=== PATIENT | male | born 1980 | race African-American/Black ===

== ENCOUNTER 2019-03-16 06:15 | Inpatient (IN) ==
[2019-03-16] MEDS ORDERED: ZALEPLON 5 MG CAPSULE PO PRN (06:16)
[2019-03-16] MEDS ORDERED: DOCUSATE SODIUM 100 MG CAPSULE PO PRN (06:16)
[2019-03-16] MEDS ORDERED: GLUCAGON 1 MG VIAL IM PRN (06:16)
[2019-03-16] MEDS ORDERED: ONDANSETRON 4 MG/2 ML VIAL IV PRN (06:16)
[2019-03-16] MEDS ORDERED: DEXTROSE 10% 25 GM/250 ML BAG IV PRN (06:16)
[2019-03-16] MEDS ORDERED: hydrALAZINE 20 MG/1 ML VIAL IV PRN (06:20)
[2019-03-16] MEDS ORDERED: ALBUTEROL 2.5 MG/3 ML NEB RESP TX PRN (06:20)
[2019-03-16] MEDS: ALBUTEROL/IPRATROPIUM 3 ML NEB RESP TX SCH ×3 (07:07→20:48)
[2019-03-16 08:27] LABS: Basophils % 0.2 % (0.0-0.8); Eosinophils % 0.2 % (0.00-10.9); Hematocrit 40.8 VOL% (42.0-52.0); Hemoglobin 13.8 GM/DL (14.0-18.0); Immature Granulocytes % 0.2 %; Immature Granulocytes Absolute 0.01 #; Lymphocytes # 1.2 10*3/uL (1.4-4.0); Mean Corpuscular HGB Conc 33.8 GM/DL (32-36); Mean Corpuscular Volume 85.7 FL (87-102); Mean Platelet Volume 12.8 FL (9.6-12.0); Monocytes % 6.6 % (1.7-12.7); Neutrophils % 69.8 % (38.7-73.9); Platelet Count 142 T/CUMM (130-400); Red Blood Count 4.76 MC/CUMM (3.8-5.5); Red Cell Distribution Width 11.2 % (9.3-17.3); White Blood Count 5.2 T/CUMM (4-12)
[2019-03-16 08:50] LABS: Albumin 2.8 G/DL (3.4-5.0); Bilirubin,Total 0.4 MG/DL (0.2-1.0); Calcium 8.3 MG/DL (8.5-10.1); Osmolality,Calculated 284.2 MOS/KG (273-304); Total Protein 7.7 G/DL (6.4-8.3)
[2019-03-16] MEDS: SODIUM CHLORIDE 0.9% 1,000 ML IV SCH ×3 (09:15→22:30)
[2019-03-16] MEDS: INSULIN REGULAR 100 UNIT/ML SUBCUT SCH ×4 (09:26→21:01)
[2019-03-16] MEDS: AZITHROMYCIN INJ 500 MG in SODIUM CHLORIDE 0.9% 250 ML IV SCH (09:27)
[2019-03-16] MEDS: cefTRIAXone 1,000 MG in SYRINGE 1 EACH IV SCH (09:27)
[2019-03-16 11:16] LABS: Amorphous Crystals,Urine Occasional /HPF (Few); Apearance,Urine CLOUDY (Clear); Bilirubin,Urine Negative (Negative); Blood, Urine Small mg/dL (Negative); Glucose,Urine (UA) >=500 mg/dL (Negative); Ketones,Urine 5 mg/dL (Negative); Mucus,Urine Occasional /LPF (Occasional); Nitrite,Urine Negative (Negative); Protein,Urine 30 MG/DL; RBC,Urine 1 /HPF (0-4); Red Blood Cell Casts,Urine 1 /LPF (<1); Squamous Epithelial Cell,Urine Occasional /HPF (0-10); Urine Color Yellow (Yellow); Urine Specific Gravity 1.013 (1.001-1.035); Urine Urobilinogen < 2.0 EU/DL (0.2-1.0); WBC,Urine 6 /HPF (0-6)
[2019-03-16] MEDS: ACETAMINOPHEN 325 MG TABLET PO PRN ×2 (12:49→21:02)
[2019-03-16] MEDS: INSULIN LISPRO 100 UNIT/ML SUBCUT SCH ×2 (12:50→17:04)
[2019-03-16] MEDS: INSULIN GLARGINE 100 UNIT/ML SUBCUT SCH (12:50)
[2019-03-17] MEDS: SODIUM CHLORIDE 0.9% 1,000 ML IV SCH ×3 (00:30→17:10)
[2019-03-17] MEDS: ALBUTEROL/IPRATROPIUM 3 ML NEB RESP TX SCH ×4 (02:40→19:12)
[2019-03-17 06:40] LABS: Basophils % 0.2 % (0.0-0.8); Eosinophils % 0.4 % (0.00-10.9); Hematocrit 37.5 VOL% (42.0-52.0); Hemoglobin 12.3 GM/DL (14.0-18.0); Immature Granulocytes % 0.4 %; Immature Granulocytes Absolute 0.02 #; Lymphocytes % 41.6 % (21.2-54.2); Mean Corpuscular HGB Conc 32.8 GM/DL (32-36); Mean Corpuscular Volume 88.2 FL (87-102); Mean Platelet Volume 12.4 FL (9.6-12.0); Neutrophils % 51.4 % (38.7-73.9); Platelet Count 146 T/CUMM (130-400); Red Blood Count 4.25 MC/CUMM (3.8-5.5); Red Cell Distribution Width 11.4 % (9.3-17.3); White Blood Count 4.9 T/CUMM (4-12)
[2019-03-17 06:43] LABS: Calcium 8.3 MG/DL (8.5-10.1); Osmolality,Calculated 286.2 MOS/KG (273-304)
[2019-03-17 07:04] LABS: Lymphocytes 46 % (20-55); Platelet Estimate Adequate; Segmented Neutrophils 44 % (50-85); Total Cells Counted 100
[2019-03-17 07:05] LABS: Microcytosis Slight
[2019-03-17] MEDS: ACETAMINOPHEN 325 MG TABLET PO PRN ×2 (07:58→20:51)
[2019-03-17] MEDS: INSULIN LISPRO 100 UNIT/ML SUBCUT SCH ×3 (08:35→17:02)
[2019-03-17] MEDS: INSULIN GLARGINE 100 UNIT/ML SUBCUT SCH (08:36)
[2019-03-17] MEDS: INSULIN REGULAR 100 UNIT/ML SUBCUT SCH ×4 (08:37→22:13)
[2019-03-17] MEDS: cefTRIAXone 1,000 MG in SYRINGE 1 EACH IV SCH (09:26)
[2019-03-17] MEDS: AZITHROMYCIN INJ 500 MG in SODIUM CHLORIDE 0.9% 250 ML IV SCH (09:29)
[2019-03-17] MEDS: GABAPENTIN 100 MG CAPSULE PO SCH (20:52)
[2019-03-18] MEDS: SODIUM CHLORIDE 0.9% 1,000 ML IV SCH ×2 (00:18→08:23)
[2019-03-18] MEDS: ALBUTEROL/IPRATROPIUM 3 ML NEB RESP TX SCH ×4 (00:23→19:53)
[2019-03-18 05:44] LABS: Basophils % 0.5 % (0.0-0.8); Eosinophils # 0.1 10*3/uL (0.0-0.87); Eosinophils % 2.4 % (0.00-10.9); Hematocrit 34.9 VOL% (42.0-52.0); Hemoglobin 11.4 GM/DL (14.0-18.0); Immature Granulocytes % 0.2 %; Immature Granulocytes Absolute 0.01 #; Lymphocytes # 2.1 10*3/uL (1.4-4.0); Lymphocytes % 48.5 % (21.2-54.2); Mean Corpuscular HGB Conc 32.7 GM/DL (32-36); Mean Corpuscular Volume 89.3 FL (87-102); Mean Platelet Volume 12.4 FL (9.6-12.0); Monocytes % 6.1 % (1.7-12.7); Neutrophils % 42.3 % (38.7-73.9); Platelet Count 156 T/CUMM (130-400); Red Blood Count 3.91 MC/CUMM (3.8-5.5); Red Cell Distribution Width 11.3 % (9.3-17.3); White Blood Count 4.3 T/CUMM (4-12)
[2019-03-18 05:58] LABS: Calcium 8.2 MG/DL (8.5-10.1); Osmolality,Calculated 283.8 MOS/KG (273-304)
[2019-03-18 06:06] LABS: Atypical Lymphocytes Few; Hypochromasia 1+; Lymphocytes 54 % (20-55); Microcytosis Slight; Myelocytes 1 %; Platelet Estimate Adequate; Segmented Neutrophils 41 % (50-85); Total Cells Counted 100
[2019-03-18] MEDS: INSULIN REGULAR 100 UNIT/ML SUBCUT SCH ×4 (07:59→19:20)
[2019-03-18] MEDS: INSULIN GLARGINE 100 UNIT/ML SUBCUT SCH (08:24)
[2019-03-18] MEDS: INSULIN LISPRO 100 UNIT/ML SUBCUT SCH ×3 (08:24→16:04)
[2019-03-18] MEDS: GABAPENTIN 100 MG CAPSULE PO SCH ×3 (08:24→20:05)
[2019-03-18] MEDS: AZITHROMYCIN 250 MG TABLET PO SCH (08:24)
[2019-03-18] MEDS: cefTRIAXone 1,000 MG in SYRINGE 1 EACH IV SCH (08:26)
[2019-03-18] MEDS: ACETAMINOPHEN 325 MG TABLET PO PRN (12:07)
[2019-03-18] MEDS: SODIUM BICARB INJ 50 MEQ in SODIUM CHLORIDE 0.45% 1,000 ML IV SCH ×2 (13:02→22:05)
[2019-03-19] MEDS: ALBUTEROL/IPRATROPIUM 3 ML NEB RESP TX SCH ×2 (00:50→07:20)
[2019-03-19 05:10] LABS: Basophils % 0.2 % (0.0-0.8); Eosinophils # 0.2 10*3/uL (0.0-0.87); Eosinophils % 3.8 % (0.00-10.9); Hematocrit 34.9 VOL% (42.0-52.0); Hemoglobin 11.1 GM/DL (14.0-18.0); Immature Granulocytes % 0.5 %; Immature Granulocytes Absolute 0.02 #; Lymphocytes # 1.7 10*3/uL (1.4-4.0); Lymphocytes % 41.2 % (21.2-54.2); Mean Corpuscular HGB Conc 31.8 GM/DL (32-36); Mean Corpuscular Volume 90.2 FL (87-102); Monocytes % 6.7 % (1.7-12.7); Neutrophils % 47.6 % (38.7-73.9); Platelet Count 183 T/CUMM (130-400); Red Blood Count 3.87 MC/CUMM (3.8-5.5); Red Cell Distribution Width 11.3 % (9.3-17.3); White Blood Count 4.2 T/CUMM (4-12)
[2019-03-19 05:44] LABS: Calcium 8.5 MG/DL (8.5-10.1); Osmolality,Calculated 282.5 MOS/KG (273-304)
[2019-03-19 05:47] LABS: Microcytosis Slight; Platelet Estimate Adequate
[2019-03-19] MEDS: INSULIN REGULAR 100 UNIT/ML SUBCUT SCH ×2 (07:44→12:44)
[2019-03-19] MEDS: cefTRIAXone 1,000 MG in SYRINGE 1 EACH IV SCH (08:10)
[2019-03-19] MEDS: INSULIN GLARGINE 100 UNIT/ML SUBCUT SCH (08:11)
[2019-03-19] MEDS: INSULIN LISPRO 100 UNIT/ML SUBCUT SCH ×2 (08:11→12:47)
[2019-03-19] MEDS: SODIUM BICARB INJ 50 MEQ in SODIUM CHLORIDE 0.45% 1,000 ML IV SCH (08:11)
[2019-03-19] MEDS: ACETAMINOPHEN 325 MG TABLET PO PRN (08:12)
[2019-03-19] MEDS: AZITHROMYCIN 250 MG TABLET PO SCH (08:12)
[2019-03-19] MEDS: GABAPENTIN 100 MG CAPSULE PO SCH (08:13)
[2019-03-19 12:45] VITALS: BP 132/80
== END 2019-03-19 13:45 | disposition home or self-care (01) | DRG 683 ==
LOC: SUATTDRO → N.5EOUT 06:15 → N.5E 06:15
PROVIDERS: ADMIT Internal Medicine; ATTEND Internal Medicine

== ENCOUNTER 2021-06-19 23:37 | Inpatient (IN) ==
[2021-06-20] MEDS ORDERED: LABETALOL 20 MG/4 ML SYRINGE IV STA (00:07)
[2021-06-20 00:14] LABS: Basophils % 0.3 % (0.0-0.8); Eosinophils # 0.1 10*3/uL (0.0-0.87); Eosinophils % 1.2 % (0.00-10.9); Hematocrit 32.1 VOL% (42.0-52.0); Hemoglobin 10.3 GM/DL (14.0-18.0); Immature Granulocytes % 0.6 %; Immature Granulocytes Absolute 0.04 #; Lymphocytes # 1.4 10*3/uL (1.4-4.0); Lymphocytes % 20.4 % (21.2-54.2); Mean Corpuscular HGB Conc 32.1 GM/DL (32-36); Mean Corpuscular Volume 92.8 FL (87-102); Mean Platelet Volume 10.4 FL (9.6-12.0); Monocytes # 0.4 10*3/uL (0.11-0.8); Monocytes % 5.8 % (1.7-12.7); Neutrophils % 71.7 % (38.7-73.9); Platelet Count 260 T/CUMM (130-400); Red Blood Count 3.46 MC/CUMM (3.8-5.5); Red Cell Distribution Width 12.5 % (9.3-17.3); White Blood Count 6.8 T/CUMM (4-12)
[2021-06-20 00:19] LABS: PT Patient Result 10.6 SECS (10.5-12.0); Partial Thromboplastin Time 28.7 SECS (23.8-32.1)
[2021-06-20 00:24] LABS: Albumin 3.6 G/DL (3.4-5.0); Bilirubin,Total 0.4 MG/DL (0.20-1.00); Calcium 9.1 MG/DL (8.5-10.1); Osmolality,Calculated 294.7 MOS/KG (273-304); Potassium 5.2 MMOL/L (3.5-5.1); Total Protein 7.4 G/DL (6.4-8.2)
[2021-06-20] MEDS ORDERED: NITROGLYCERIN SL 0.4 MG TABLET SL PRN (01:39)
[2021-06-20] MEDS ORDERED: HEPARIN 5,000 UNIT/1 ML VIAL IV ONE (01:39)
[2021-06-20] MEDS ORDERED: ASPIRIN CHEW 81 MG TABLET PO ONE (01:39)
[2021-06-20] MEDS ORDERED: MAGNESIUM SULF RIDER 2 GM/50 ML PREMIX IV PRN (01:39)
[2021-06-20] MEDS ORDERED: MAGNESIUM SULF RIDER 4 GM/100 ML PREMIX IV PRN (01:39)
[2021-06-20] MEDS ORDERED: MORPHINE 2 MG/1 ML SYRINGE IV PRN (01:39)
[2021-06-20] MEDS ORDERED: SIMETHICONE CHEW 125 MG TABLET PO PRN (01:39)
[2021-06-20] MEDS ORDERED: ONDANSETRON 4 MG/2 ML VIAL IV PRN (01:39)
[2021-06-20] MEDS ORDERED: GLUCAGON 1 MG VIAL IM PRN (01:39)
[2021-06-20] MEDS ORDERED: POTASSIUM CHLORIDE 20 MEQ TABLET PO PRN (02:00)
[2021-06-20] MEDS ORDERED: POTASSIUM CHLORIDE RIDER 10 MEQ/100 ML PREMIX IV PRN (02:00)
[2021-06-20] MEDS ORDERED: DEXTROSE 10% 250 ML BAG IV PRN (02:12)
[2021-06-20] MEDS: carvediloL 3.125 MG TABLET PO SCH ×2 (03:01→09:16)
[2021-06-20] MEDS: HEPARIN DRIP 25,000 UNITS/500 ML PREMIX IV SCH ×2 (03:09→21:22)
[2021-06-20] MEDS: SODIUM CHLORIDE 0.9% 1,000 ML IV SCH ×3 (03:10→23:49)
[2021-06-20 04:14] LABS: Albumin 3.2 G/DL (3.4-5.0); Bilirubin,Total 0.4 MG/DL (0.20-1.00); Calcium 8.7 MG/DL (8.5-10.1); Osmolality,Calculated 298.5 MOS/KG (273-304); Potassium 4.7 MMOL/L (3.5-5.1); Risk Ratio 6.93; Thyroid Stimulating Hormone 2.01 uIU/ml (0.358-3.74); Total Protein 7.4 G/DL (6.4-8.2); VLDL Cholesterol 26.8 MG/DL
[2021-06-20 04:55] LABS: Basophils % 0.2 % (0.0-0.8); Eosinophils # 0.2 10*3/uL (0.0-0.87); Hemoglobin 9.1 GM/DL (14.0-18.0); Immature Granulocytes % 0.2 %; Immature Granulocytes Absolute 0.01 #; Lymphocytes # 1.4 10*3/uL (1.4-4.0); Lymphocytes % 23.5 % (21.2-54.2); Mean Corpuscular HGB Conc 31.4 GM/DL (32-36); Mean Corpuscular Volume 92.9 FL (87-102); Monocytes # 0.4 10*3/uL (0.11-0.8); Monocytes % 6.7 % (1.7-12.7); Neutrophils % 65.4 % (38.7-73.9); Platelet Count 232 T/CUMM (130-400); Red Blood Count 3.12 MC/CUMM (3.8-5.5); Red Cell Distribution Width 12.5 % (9.3-17.3)
[2021-06-20] MEDS: INSULIN REGULAR 100 UNIT/ML SUBCUT SCH ×4 (08:15→20:26)
[2021-06-20] MEDS ORDERED: amLODIPine 10 MG TABLET PO SCH (09:00)
[2021-06-20] MEDS ORDERED: cloNIDine 0.1 MG TABLET PO SCH (09:00)
[2021-06-20 09:12] LABS: Bacteria,Urine Occasional /HPF (Few); Mucus,Urine Occasional /LPF (Occasional); RBC,Urine 10 /HPF (0-4); Urine Appearance Clear (Clear); Urine Color Yellow (Yellow)
[2021-06-20 09:13] LABS: Bilirubin,Urine Negative (Negative); Blood, Urine Trace mg/dL (Negative); Glucose,Urine (UA) Negative (Negative); Ketones,Urine Negative (Negative); Nitrite,Urine Negative (Negative); Protein,Urine >=300 mg/dL (Negative); Urine Urobilinogen 0.2 eU/dL (<2.0)
[2021-06-20] MEDS: DOCUSATE SODIUM 100 MG CAPSULE PO SCH ×3 (09:15→20:49)
[2021-06-20] MEDS: PANTOPRAZOLE 40 MG TABLET PO SCH (09:16)
[2021-06-20 09:27] LABS: Barbiturates Screen,Urine Negative (Negative); Benzodiazepines Screen,Urine Negative (Negative); Cannabinoid Screen,Urine Negative (Negative); Opiate Screen,Urine Negative (Negative); Phencyclidine Screen,Urine Negative (Negative)
[2021-06-20] MEDS ORDERED: carvediloL 3.125 MG TABLET PO SCH (21:00)
[2021-06-20] MEDS: carvediloL 25 MG TABLET PO SCH (21:04)
[2021-06-21] MEDS: HEPARIN DRIP 25,000 UNITS/500 ML PREMIX IV SCH (04:58)
[2021-06-21 05:34] LABS: Basophils % 0.7 % (0.0-0.8); Eosinophils # 0.2 10*3/uL (0.0-0.87); Eosinophils % 5.8 % (0.00-10.9); Hematocrit 29.6 VOL% (42.0-52.0); Hemoglobin 9.2 GM/DL (14.0-18.0); Lymphocytes # 1.4 10*3/uL (1.4-4.0); Lymphocytes % 34.5 % (21.2-54.2); Mean Corpuscular HGB Conc 31.1 GM/DL (32-36); Mean Corpuscular Volume 94.6 FL (87-102); Mean Platelet Volume 10.6 FL (9.6-12.0); Monocytes # 0.3 10*3/uL (0.11-0.8); Monocytes % 7.5 % (1.7-12.7); Neutrophils % 51.5 % (38.7-73.9); Platelet Count 224 T/CUMM (130-400); Red Blood Count 3.13 MC/CUMM (3.8-5.5); Red Cell Distribution Width 12.6 % (9.3-17.3); White Blood Count 4.1 T/CUMM (4-12)
[2021-06-21 05:52] LABS: Parathyroid Hormone Intact 148.3 PG/ML (18.4-80.1); Uric Acid 8.3 MG/DL (3.5-7.2)
[2021-06-21 05:54] LABS: Calcium 8.7 MG/DL (8.5-10.1); Osmolality,Calculated 293.5 MOS/KG (273-304); Potassium 5.2 MMOL/L (3.5-5.1)
[2021-06-21] MEDS ORDERED: SODIUM POLYSTYRENE SULFATE 15 GM/60 ML BOTTLE PO ONE (07:36)
[2021-06-21] MEDS ORDERED: POLYETHYLENE GLYCOL POWDER 17 GM PACK PO PRN (07:36)
[2021-06-21] MEDS: PANTOPRAZOLE 40 MG TABLET PO SCH (08:09)
[2021-06-21] MEDS: ASPIRIN EC 325 MG TABLET PO SCH (08:09)
[2021-06-21] MEDS: DOCUSATE SODIUM 100 MG CAPSULE PO SCH ×2 (08:09→20:59)
[2021-06-21] MEDS: carvediloL 25 MG TABLET PO SCH ×3 (08:10→20:41)
[2021-06-21] MEDS: POLYETHYLENE GLYCOL POWDER 17 GM PACK PO PRN (08:10)
[2021-06-21] MEDS: SODIUM CHLORIDE 0.9% 1,000 ML IV SCH (08:11)
[2021-06-21 08:47] LABS: Protein/Creatinine Ratio,Urine 1.5 RATIO
[2021-06-21] MEDS: INSULIN REGULAR 100 UNIT/ML SUBCUT SCH ×4 (09:31→20:59)
[2021-06-21] MEDS: HEPARIN 5,000 UNIT/1 ML VIAL SUBCUT SCH (15:24)
[2021-06-21] MEDS: hydrALAZINE 20 MG/1 ML VIAL IV PRN (17:07)
[2021-06-22] MEDS: HEPARIN 5,000 UNIT/1 ML VIAL SUBCUT SCH ×2 (03:05→15:45)
[2021-06-22 05:40] LABS: Basophils % 0.8 % (0.0-0.8); Eosinophils # 0.2 10*3/uL (0.0-0.87); Hematocrit 31.1 VOL% (42.0-52.0); Hemoglobin 9.8 GM/DL (14.0-18.0); Immature Granulocytes % 0.4 %; Immature Granulocytes Absolute 0.02 #; Lymphocytes # 1.3 10*3/uL (1.4-4.0); Lymphocytes % 25.4 % (21.2-54.2); Mean Corpuscular HGB Conc 31.5 GM/DL (32-36); Mean Platelet Volume 10.7 FL (9.6-12.0); Monocytes # 0.3 10*3/uL (0.11-0.8); Monocytes % 6.1 % (1.7-12.7); Neutrophils % 63.3 % (38.7-73.9); Platelet Count 263 T/CUMM (130-400); Red Blood Count 3.31 MC/CUMM (3.8-5.5); Red Cell Distribution Width 12.3 % (9.3-17.3); White Blood Count 5.2 T/CUMM (4-12)
[2021-06-22 06:00] LABS: Calcium 8.9 MG/DL (8.5-10.1); Osmolality,Calculated 290.7 MOS/KG (273-304); Potassium 5.2 MMOL/L (3.5-5.1)
[2021-06-22] MEDS ORDERED: SODIUM ZIRCONIUM CYCLOSILICATE 10 GM PACK PO SCH (09:00)
[2021-06-22] MEDS: carvediloL 25 MG TABLET PO SCH ×2 (09:24→21:18)
[2021-06-22] MEDS: ASPIRIN EC 325 MG TABLET PO SCH (09:24)
[2021-06-22] MEDS: DOCUSATE SODIUM 100 MG CAPSULE PO SCH ×2 (09:24→21:19)
[2021-06-22] MEDS: PANTOPRAZOLE 40 MG TABLET PO SCH (09:24)
[2021-06-22] MEDS: INSULIN REGULAR 100 UNIT/ML SUBCUT SCH ×4 (09:24→21:03)
[2021-06-22] MEDS: calcitrioL 0.25 MCG CAPSULE PO SCH (09:24)
[2021-06-22] MEDS: hydrALAZINE 20 MG/1 ML VIAL IV PRN (23:04)
[2021-06-23] MEDS: HEPARIN 5,000 UNIT/1 ML VIAL SUBCUT SCH ×2 (02:49→15:49)
[2021-06-23 05:39] LABS: Basophils % 0.6 % (0.0-0.8); Eosinophils # 0.2 10*3/uL (0.0-0.87); Eosinophils % 4.5 % (0.00-10.9); Hematocrit 28.2 VOL% (42.0-52.0); Hemoglobin 8.9 GM/DL (14.0-18.0); Immature Granulocytes % 0.8 %; Immature Granulocytes Absolute 0.03 #; Lymphocytes # 1.4 10*3/uL (1.4-4.0); Lymphocytes % 37.9 % (21.2-54.2); Mean Corpuscular HGB Conc 31.6 GM/DL (32-36); Mean Corpuscular Volume 93.7 FL (87-102); Mean Platelet Volume 10.3 FL (9.6-12.0); Monocytes # 0.3 10*3/uL (0.11-0.8); Monocytes % 8.4 % (1.7-12.7); Neutrophils % 47.8 % (38.7-73.9); Platelet Count 229 T/CUMM (130-400); Red Blood Count 3.01 MC/CUMM (3.8-5.5); Red Cell Distribution Width 12.3 % (9.3-17.3); White Blood Count 3.6 T/CUMM (4-12)
[2021-06-23 05:53] LABS: Calcium 8.7 MG/DL (8.5-10.1); Osmolality,Calculated 294.5 MOS/KG (273-304); Potassium 5.2 MMOL/L (3.5-5.1)
[2021-06-23] MEDS: INSULIN REGULAR 100 UNIT/ML SUBCUT SCH ×4 (08:22→21:01)
[2021-06-23] MEDS ORDERED: SODIUM ZIRCONIUM CYCLOSILICATE 10 GM PACK PO SCH (09:00)
[2021-06-23] MEDS: ASPIRIN EC 325 MG TABLET PO SCH (09:30)
[2021-06-23] MEDS: PANTOPRAZOLE 40 MG TABLET PO SCH (09:31)
[2021-06-23] MEDS: DOCUSATE SODIUM 100 MG CAPSULE PO SCH ×2 (09:31→20:44)
[2021-06-23] MEDS: carvediloL 25 MG TABLET PO SCH ×2 (09:31→20:44)
[2021-06-23] MEDS: calcitrioL 0.25 MCG CAPSULE PO SCH (09:31)
[2021-06-23] MEDS: FUROSEMIDE 40 MG/4 ML VIAL IV SCH (17:13)
[2021-06-23] MEDS: POLYETHYLENE GLYCOL POWDER 17 GM PACK PO PRN (17:14)
[2021-06-24] MEDS: HEPARIN 5,000 UNIT/1 ML VIAL SUBCUT SCH ×2 (04:00→14:51)
[2021-06-24 04:46] LABS: Basophils % 0.5 % (0.0-0.8); Eosinophils # 0.2 10*3/uL (0.0-0.87); Eosinophils % 4.7 % (0.00-10.9); Hematocrit 29.3 VOL% (42.0-52.0); Hemoglobin 9.1 GM/DL (14.0-18.0); Immature Granulocytes % 0.2 %; Immature Granulocytes Absolute 0.01 #; Lymphocytes # 1.5 10*3/uL (1.4-4.0); Lymphocytes % 37.4 % (21.2-54.2); Mean Corpuscular HGB Conc 31.1 GM/DL (32-36); Mean Corpuscular Volume 93.6 FL (87-102); Mean Platelet Volume 10.6 FL (9.6-12.0); Monocytes # 0.3 10*3/uL (0.11-0.8); Monocytes % 6.7 % (1.7-12.7); Neutrophils % 50.5 % (38.7-73.9); Platelet Count 232 T/CUMM (130-400); Red Blood Count 3.13 MC/CUMM (3.8-5.5); Red Cell Distribution Width 12.3 % (9.3-17.3)
[2021-06-24 05:11] LABS: Calcium 9.1 MG/DL (8.5-10.1); Osmolality,Calculated 295.5 MOS/KG (273-304); Potassium 5.1 MMOL/L (3.5-5.1)
[2021-06-24] MEDS: INSULIN REGULAR 100 UNIT/ML SUBCUT SCH ×4 (07:30→21:17)
[2021-06-24] MEDS: DOCUSATE SODIUM 100 MG CAPSULE PO SCH ×2 (08:46→20:26)
[2021-06-24] MEDS: calcitrioL 0.25 MCG CAPSULE PO SCH (08:47)
[2021-06-24] MEDS: ASPIRIN EC 325 MG TABLET PO SCH (08:47)
[2021-06-24] MEDS: carvediloL 25 MG TABLET PO SCH ×2 (08:47→20:26)
[2021-06-24] MEDS: PANTOPRAZOLE 40 MG TABLET PO SCH (08:47)
[2021-06-24] MEDS: POLYETHYLENE GLYCOL POWDER 17 GM PACK PO SCH (08:50)
[2021-06-24] MEDS: FUROSEMIDE 40 MG/4 ML VIAL IV SCH (08:51)
[2021-06-25] MEDS: HEPARIN 5,000 UNIT/1 ML VIAL SUBCUT SCH ×2 (04:22→16:57)
[2021-06-25 04:40] LABS: Basophils % 0.6 % (0.0-0.8); Eosinophils # 0.1 10*3/uL (0.0-0.87); Eosinophils % 3.6 % (0.00-10.9); Hematocrit 27.5 VOL% (42.0-52.0); Hemoglobin 8.5 GM/DL (14.0-18.0); Immature Granulocytes % 0.3 %; Immature Granulocytes Absolute 0.01 #; Lymphocytes # 1.3 10*3/uL (1.4-4.0); Lymphocytes % 37.6 % (21.2-54.2); Mean Corpuscular HGB Conc 30.9 GM/DL (32-36); Mean Corpuscular Volume 92.6 FL (87-102); Mean Platelet Volume 10.8 FL (9.6-12.0); Monocytes # 0.3 10*3/uL (0.11-0.8); Monocytes % 8.4 % (1.7-12.7); Neutrophils % 49.5 % (38.7-73.9); Platelet Count 239 T/CUMM (130-400); Red Blood Count 2.97 MC/CUMM (3.8-5.5); Red Cell Distribution Width 12.2 % (9.3-17.3); White Blood Count 3.4 T/CUMM (4-12)
[2021-06-25 04:54] LABS: Calcium 8.6 MG/DL (8.5-10.1); Osmolality,Calculated 299.7 MOS/KG (273-304); Potassium 4.9 MMOL/L (3.5-5.1)
[2021-06-25] MEDS: carvediloL 25 MG TABLET PO SCH ×2 (09:57→21:27)
[2021-06-25] MEDS: calcitrioL 0.25 MCG CAPSULE PO SCH (09:57)
[2021-06-25] MEDS: PANTOPRAZOLE 40 MG TABLET PO SCH (09:57)
[2021-06-25] MEDS: DOCUSATE SODIUM 100 MG CAPSULE PO SCH ×2 (09:57→21:27)
[2021-06-25] MEDS: FUROSEMIDE 40 MG/4 ML VIAL IV SCH (09:58)
[2021-06-25] MEDS: ASPIRIN EC 325 MG TABLET PO SCH (09:58)
[2021-06-25] MEDS: POLYETHYLENE GLYCOL POWDER 17 GM PACK PO SCH ×2 (09:59→21:27)
[2021-06-25] MEDS: INSULIN REGULAR 100 UNIT/ML SUBCUT SCH ×4 (10:38→21:26)
[2021-06-26] MEDS: HEPARIN 5,000 UNIT/1 ML VIAL SUBCUT SCH ×2 (03:16→16:47)
[2021-06-26 05:02] LABS: Calcium 8.6 MG/DL (8.5-10.1); Osmolality,Calculated 301.5 MOS/KG (273-304); Potassium 4.8 MMOL/L (3.5-5.1)
[2021-06-26] MEDS: POLYETHYLENE GLYCOL POWDER 17 GM PACK PO SCH ×2 (09:33→20:32)
[2021-06-26] MEDS: ASPIRIN EC 325 MG TABLET PO SCH (09:33)
[2021-06-26] MEDS: FUROSEMIDE 40 MG/4 ML VIAL IV SCH (09:33)
[2021-06-26] MEDS: PANTOPRAZOLE 40 MG TABLET PO SCH (09:33)
[2021-06-26] MEDS: calcitrioL 0.25 MCG CAPSULE PO SCH (09:33)
[2021-06-26] MEDS: carvediloL 25 MG TABLET PO SCH ×2 (09:33→20:33)
[2021-06-26] MEDS: DOCUSATE SODIUM 100 MG CAPSULE PO SCH ×2 (09:33→20:32)
[2021-06-26] MEDS: INSULIN REGULAR 100 UNIT/ML SUBCUT SCH ×4 (11:28→22:01)
[2021-06-26] MEDS ORDERED: LACTULOSE 20 GM/30 ML UDCUP PO PRN (12:42)
[2021-06-27] MEDS: HEPARIN 5,000 UNIT/1 ML VIAL SUBCUT SCH (03:15)
[2021-06-27 07:58] LABS: Basophils % 0.5 % (0.0-0.8); Eosinophils # 0.2 10*3/uL (0.0-0.87); Eosinophils % 4.6 % (0.00-10.9); Hemoglobin 9.1 GM/DL (14.0-18.0); Immature Granulocytes % 0.3 %; Immature Granulocytes Absolute 0.01 #; Lymphocytes # 1.2 10*3/uL (1.4-4.0); Lymphocytes % 31.9 % (21.2-54.2); Mean Corpuscular HGB Conc 31.4 GM/DL (32-36); Mean Corpuscular Volume 92.7 FL (87-102); Mean Platelet Volume 10.4 FL (9.6-12.0); Monocytes # 0.3 10*3/uL (0.11-0.8); Monocytes % 9.2 % (1.7-12.7); Neutrophils % 53.5 % (38.7-73.9); Platelet Count 247 T/CUMM (130-400); Red Blood Count 3.13 MC/CUMM (3.8-5.5); Red Cell Distribution Width 12.3 % (9.3-17.3); White Blood Count 3.7 T/CUMM (4-12)
[2021-06-27 08:16] LABS: Calcium 9.2 MG/DL (8.5-10.1); Osmolality,Calculated 305.4 MOS/KG (273-304); Potassium 5.1 MMOL/L (3.5-5.1)
[2021-06-27] MEDS: ASPIRIN EC 325 MG TABLET PO SCH (09:09)
[2021-06-27] MEDS: calcitrioL 0.25 MCG CAPSULE PO SCH (09:09)
[2021-06-27] MEDS: PANTOPRAZOLE 40 MG TABLET PO SCH (09:09)
[2021-06-27] MEDS: carvediloL 25 MG TABLET PO SCH (09:09)
[2021-06-27] MEDS: INSULIN REGULAR 100 UNIT/ML SUBCUT SCH ×2 (09:20→12:39)
[2021-06-27] MEDS: FUROSEMIDE 40 MG/4 ML VIAL IV SCH (09:21)
[2021-06-27] MEDS: DOCUSATE SODIUM 100 MG CAPSULE PO SCH (11:10)
[2021-06-27] MEDS: POLYETHYLENE GLYCOL POWDER 17 GM PACK PO SCH (11:10)
[2021-06-27 12:49] VITALS: BP 124/65
== END 2021-06-27 14:40 | disposition home or self-care (01) | DRG 305 ==
LOC: N.ED 23:37 → SUATTDRO 06-20 01:52 → N.EDINP 06-20 01:52 → N.CC 06-20 12:37 → N.TELEN 06-24 16:08
PROVIDERS: ADMIT Internal Medicine; ATTEND Internal Medicine